=== PATIENT | male | born 1985 | race Caucasian/White ===

== ENCOUNTER 2021-10-07 00:22 | Emergency (ER) | payer OTHER, SELFPAY ==
[2021-10-07 00:23] VITALS: BP 124/81; PULSE 61; RESP 18; TEMP 36.6; O2SAT 100; BMI 20.5
--- NOTE | 2021-10-07 00:35 | RAD_ITS ---
EXAM: XR RIGHT FOREARM, 2 VIEWS CLINICAL INDICATION: PAIN TECHNIQUE: Frontal and lateral views of the right forearm. This report was created using [employer] report generation technology. COMPARISON: None. FINDINGS: BONES/JOINTS: Unremarkable. No acute fracture. No dislocation. SOFT TISSUES: Unremarkable. RAD/Forearm 2 Views IMPRESSION: Negative right forearm x-rays. Electronically Signed: René Tryalor MD at 1:00 EDT ,
--- NOTE | 2021-10-07 01:06 | EDS_ITS ---
HPI History of Present Illness Chief Complaint: Upper Extremity Injury Narrative Narrative: Patient is a 36-year-old male who states he is left-handed. 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 He denies any direct trauma but states that after a few hours he noticed he was having some soreness and swelling to his right forearm. Secondary to this he was sent in for evaluation [facility] Medical History no medical history no medical history Allergy/AdvReac Type Severity Reaction Status Date / Time No Known Allergies Allergy Verified 10/07/21 00:34 Family History no significant family his Surgical History no surgical history Social History Smoking Status: Never smoker ROS ROS ED Constitutional Constitutional ED: Denies chills or fever(s) ENT ENT ED: Denies sore throat Cardiovascular Cardiovascular: Denies chest pain Respiratory/Chest Respiratory/Chest: Denies cough or dyspnea Gastrointestinal Gastrointestinal: Denies abdominal pain, diarrhea, nausea or vomiting Genitourinary Genitourinary ED: Denies dysuria Musculoskeletal Musculoskeletal: Reports other Details: Positive right forearm pain ; Denies myalgias Integumentary Denies rash Neurologic Neurologic: Denies headache(s) Hematologic/Lymphatic Hematologic/Lymphatic: Denies easy bleeding or easy bruising EXAM Physical Exam Const Vital Signs: 10/07/21 00:23 Temperature 97.8 F Temperature Source Temporal Pulse Rate 61 Respiratory Rate 18 Blood Pressure 124/81 H Blood Pressure Mean 95 Pulse Ox 100 Oxygen Delivery Method Room Air Positive well nourished and well developed General Appearance ED: well developed Eyes PERRL and EOMs intact bilaterally Neck supple Resp normal respiratory effort and clear to auscultation bilaterally Cardio regular rate and regular rhythm Extremity Extremity Narrative: Right upper extremity is neurovascularly intact; AIN/PIN are intact and normal. There is mild soft tissue swelling with faint erythema to the distal dorsal aspect of the right forearm over top the brachial radialis insertion site. There is no obvious bony deformity or joint effusion. Patient does have increased pain with pronation as well as flexion of the bicep. There is no asymmetric warmth associate with the mild erythema no obvious abscess formation or lymphangitic streaking. No reported direct trauma or skin puncture to sugge st infection. Compartments are soft going against compartment syndrome. remainder the exam is normal Neuro oriented x3 and CN's II-XII intact bilaterally Sensorium / Orientation: alert Psych mental status grossly normal Skin no rashes or lesions noted Skin Narrative: Mild soft tissue swelling with faint erythema to the dorsal aspect of the right distal forearm as documented above MDM MDM MDM Narrative Medical decision making narrative: Patient presented to the ER with stable vitals and in no report or signs of direct trauma to the right forearm. He reported repetitive overuse. There is soft tissue swelling and faint erythema but no asymmetric warmth or streaking to suggest infection. He also denies any recent puncture wound that could have introduced possible infection in the area is not over the joint space to suggest gout. He denies any recent travel surgery or history of DVT/PE and there I have low concern for an upper extremity DVT. At this point with his history of range of motion I do feel he most likely has a grade 2 sprain of his brachial radialis muscle. He will be put in a brace for stabilization and to reduce motion. He was informed that it will take time for this to heal but it is all symptomatic and there is no need for any type of surgical intervention. Patient will be given limited duty at work for the next 7 days. He will continue to watch the mild redness to see if there is any extension or development of fever and if so return to the hospital for evaluation. However at this time my concern for underlying infectious process is low as well as DVT so I do not feel there is need for D-dimer or basic blood work. Patient will also follow-up with Workmen's Comp. for further evaluation and to discuss any limitations Radiography Diagnostic Testing: Clinical Impression(s) from Imaging Studies Forearm X-Ray 10/07/21 00:35 IMPRESSION: Negative right forearm x-rays. Electronically Signed: René rTaylor MD at 1:00 EDT , Treatment and Re-Evaluation Narrative: Right forearm x-rays interpreted by the emergency medicine physician reveals no acute fracture dislocation or foreign body Discharge Plan Triage Chief Complaint: Upper Extremity Injury ED Provider: Dante Fine Dx/Rx/DC Orders Clinical Impression: Repetitive strain injury of right forearm Instructions: ED Muscle Strain, Extremity Stand Alone Forms: Work Status Form Primary Care Provider: Care Physician,No Primary Referrals: Rebecca Mjeía, [STAFF PHYSICIAN] - 3-5 Days if not improving Care Physician,No Primary [Primary Care Provider] - Activity Restrictions/Additional Instructions: Please wear your wrist brace for stabilization and protection to prevent further overuse injury. Please follow-up with Workmen's Compensation as directed by your HR department and use Tylenol Motrin for pain control as well as topical analgesics such as icy hot or Voltaren gel Disposition Disposition: Home, Self Care Discharge Date/Time: 10/07/21 01:22
== END 2021-10-07 01:22 | disposition home or self-care (01) ==
LOC: ED 01:14
PROVIDERS: Emergency Provider Emergency Medicine; Visit Provider Emergency Medicine
DX: S46.911A Strain of unspecified muscle, fascia and tendon at shoulder and upper arm level, right arm, initial encounter (principal); X50.1XXA Overexertion from prolonged static or awkward postures, initial encounter
CPT/HCPCS: 73090; 99283

== ENCOUNTER 2022-07-28 22:12 | Emergency (ER) | payer OTHER, SELFPAY ==
[2022-07-28 22:13] VITALS: BP 118/91; PULSE 95; RESP 16; TEMP 37.1; O2SAT 98; BMI 21.4
--- NOTE | 2022-07-28 22:17 | EX.ED.DYSGE1 ---
HPI History of Present Illness Chief Complaint: Sore Throat PFSH PFSH Home Medications amoxicillin 875 mg-potassium clavulanate 125 mg tablet 1 tab PO BID 7 days #14 tabs 07/28/22 [Rx Last Taken Unknown] Allergy/AdvReac Type Severity Reaction Status Date / Time No Known Allergies Allergy Verified 07/28/22 22:14 Social History Smoking Status: Current every day smoker tobacco type: cigarettes EXAM Physical Exam Const Vital Signs: 07/28/22 22:13 Temperature 98.7 F Temperature Source Temporal Pulse Rate 95 Respiratory Rate 16 Blood Pressure 118/91 H Blood Pressure Mean 100 Pulse Ox 98 Oxygen Delivery Method Room Air [facility] MDM Narrative Medical decision making narrative: HISTORY OF PRESENT ILLNESS: 37-year-old male here with a chief complaint of sore throat. Patient dorsals 3-day history of sore throat, difficulty swallowing. Denies neck stiffness, fever, vomiting. Denies any sick contacts. REVIEW OF SYSTEMS: Pertinent positives: Sore throat Pertinent negatives: Stridor, drooling, neck stiffness, submandibular edema PHYSICAL EXAM: Nursing triage notes reviewed, Vital signs reviewed Constitutional: please see mdm HENT: MMM, tonsils are erythematous but no obvious exudates, uvula midline, no submandibular edema Eyes: Pupils equal round and reactive to light, Extraocular muscles intact Neck: No stridor, no JVD, full neck ROM, anterior cervical lymphadenopathy noted MEDICAL DECISION MAKING: Chief Complaint: Sore throat External records reviewed: No recent advanced imaging of the neck/throat. No recent ED visits noted in the chart MDM Narrative: The patient was hemodynamically stable, afebrile, nontoxic-appearing. Exam without evidence of Dalton's angina, Lemierre's syndrome, RPA, SERVICE CENTER TECHNICIAN. I will prophylactically treat the patient for bacterial pharyngitis with Augmentin. I considered the following differential diagnosis: Bacterial pharyngitis, viral pharyngitis, RPA, SERVICE CENTER TECHNICIAN, Lemierre's syndrome, Ludewig's angina, mononucleosis Factors affecting care: None Social determinants of health: Current everyday smoker History obtained from others: none Shared decision making: I will have a discussion with the patient and or visitors regarding risk/benefits of further testing or admission. They will be made aware of of the risk/benefits inherent in this decision they will be given the opportunity to voice understanding. Consults: None Discharge Plan Triage Chief Complaint: Sore Throat ED Provider: Phillip Lantigua Dx/Rx/DC Orders Instructions: Pharyngitis or Tonsillitis Ch Prescriptions: New amoxicillin-pot clavulanate 875-125 mg tablet 1 tab PO BID 7 Days Qty: 14 0RF Primary Care Provider: Care Physician,No Primary Referrals: Care Physician,No Primary [Primary Care Provider] - Activity Restrictions/Additional Instructions: Thank you for trusting us with your care today! Please take Tylenol (2 pills, 650 mg), ibuprofen (2 pills, 400 mg) every 6 hours as needed for pain and fever control. Please take your entire antibiotic course until your course is complete. Please return to the emergency department if your symptoms change or worsen. Specifically if you develop difficulty swallowing, swelling underneath your jaw, neck stiffness, drooling, stridor (loud or abnormal inspiratory sounds with breathing) Please follow with your primary care physician for further outpatient evaluation and management. Disposition Disposition: Home, Self Care
[2022-07-28] MEDS: Amox/Clavulanate 875 MG Tablet PO (23:09)
[2022-07-28] MEDS: Acetaminophen 325 MG Tablet 650 MG PO (23:09)
[2022-07-28] MEDS: Ibuprofen 200 MG Tablet 400 MG PO (23:09)
== END 2022-07-28 23:37 | disposition home or self-care (01) ==
PROVIDERS: Emergency Provider Emergency Medicine; Visit Provider Emergency Medicine
DX: J02.9 Acute pharyngitis, unspecified (principal); F17.210 Nicotine dependence, cigarettes, uncomplicated
CPT/HCPCS: 99283